=== PATIENT | male | born 1990 | race Caucasian/White ===

== ENCOUNTER 2019-05-13 12:37 | Emergency (ER) | payer MEDICAID ==
[~2019-05-13] VITALS: Ht 188 cm; Wt 149.7 kg
[2019-05-13 12:43] VITALS: BP 164/87
--- NOTE | 2019-05-13 12:59 | NUR ---
PATIENT AMBULATED TO ER BED 2
[2019-05-13] MEDS ORDERED: KETOROLAC 60 MG/2 ML VIAL IM ONE (13:00)
--- NOTE | 2019-05-13 13:16 | NUR ---
PT WOUND CLEANED WITH BETADINE AND SALINE, NO ACTIVE BLEEDING, PT TOLERATED WELL.
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
--- NOTE | 2019-05-13 15:06 | NUR ---
Patient discharged with v/s stable. Written and verbal after care instructions given and explained. Patient alert, oriented and verbalized understanding of instructions. Ambulatory with to home. All questions addressed prior to discharge. ID band removed. Patient advised to follow up with PMD. Rx of BACITRICIN ONINTMENT AND AUGUMENTIN given. Patient educated on indication of medication including possible reaction and side effects. Opportunity to ask questions provided and answered.
[2019-05-13 15:08] VITALS: BP 137/71
== END 2019-05-13 15:06 | disposition home or self-care (01) ==
LOC: MED 12:37
DX: S61.452A Open bite of left hand, initial encounter (principal); W54.0XXA Bitten by dog, initial encounter; Y93.89 Activity, other specified; Y92.89 Other specified places as the place of occurrence of the external cause; Y99.8 Other external cause status
CPT/HCPCS: 73130; 90471; 90715; 96372; 99283; J1885; Q0092